=== PATIENT | female | born 1965 | race Caucasian/White ===

== ENCOUNTER → 2017-05-12 | Outpatient (CLI) | payer BC ==
[~2017-05-12] MED LIST: ALBUTEROL17 GM INH; ALLERGY10 M1 PO; ATARAX PO; HUMIBID-LA600 MG PO; MONTELUKAST SOD10 MG PO; NICOTINE1 PATCH .2 TD; NO MEDICATIONS; PREDNISONE10 MG PO; PREDNISONE10 MG/DOSE PO; SINGULAIR PO; SPIRIVA18 MCG INH; SYMBICORT 16010.2 GM INH; SYMBICORT INH; SYMBICORT80 INH; TYLENOL #3 PO; VITAMIN B122500 MCG PO
== END | disposition home or self-care (01) ==
LOC: CRC 04-27 14:00
DX: J44.9 Chronic obstructive pulmonary disease, unspecified (principal); R53.83 Other fatigue; F17.210 Nicotine dependence, cigarettes, uncomplicated
CPT/HCPCS: 94060; 94726; 94729